=== PATIENT | male | born 1960 | race Caucasian/White ===

== ENCOUNTER → 2019-11-14 | Outpatient (CLI) | payer MEDICARE, MEDICAID ==
--- NOTE | 2019-11-14 13:52 | Diagnostic Imaging Report ---
EXAM: CT left shoulder without contrast. DATE: November 14, 2019. INDICATION: 59-year-old male, left shoulder pain. COMPARISON: None. TECHNIQUE: Axial CT images of the shoulder were obtained without contrast. Coronal and Sagittal as well as three dimensional reconstructions were obtained and provided. All CT scans use one or more of the following dose optimizing techniques: automated exposure control, MA and/or KvP adjustment based on a patient size and exam type, or iterative reconstruction. FINDINGS: The acromioclavicular joint is normally aligned. There are mild to moderate acromioclavicular degenerative changes without large undersurface osteophyte. There is no os acromiale. The humeral head is normally positioned relative to the glenoid. There is no glenohumeral joint space loss, osteophyte formation, or subchondral cystic change. There is no identified acute fracture. There is no concerning focal bone lesion. There is nondiagnostic direct evaluation of the rotator cuff tendons on CT. There is no identified fatty atrophy of the rotator cuff musculature. The visualized portions of the left lung are clear. There are atherosclerotic calcifications. There are carotid vascular calcifications. IMPRESSION: 1. No acute fracture or abnormal bone alignment. 2. Mild to moderate acromioclavicular degenerative changes without undersurface osteophyte. 3. Unremarkable evaluation of the glenohumeral joint. 4. Nondiagnostic direct assessment of the rotator cuff tendons on CT. There is no fatty atrophy of the rotator cuff musculature. Dictated by: Dictated on workstation # [id number]
== END ==
LOC: RAD FS 12:18
PROVIDERS: ATTEND Nurse Practitioner
DX: M19.012 Primary osteoarthritis, left shoulder (principal)
CPT/HCPCS: 73200